=== PATIENT | female | born 1980 | race American Indian/Alaskan Native ===

== ENCOUNTER 2018-11-02 15:27 | Emergency (ER) | payer SELFPAY ==
[2018-11-02 16:39] LABS: Bilirubin,Urine NEG (Negative); Blood,Urine NEG (Negative); Color,Urine Amber (Yellow); Mucus,Urine 3+ /HPF; Protein,Urine <15 mg/dL mg/dL (Negative)
[2018-11-02 16:43] VITALS: BP 125/71
--- NOTE | 2018-11-02 16:43 | Event Note ---
ED Screening Note Date of service: 11/02/18 Time: 16:40 ED Screening Note: 38 y/o female comes in for vaginal bleeding that has become heavy. Report having fibroids. Mild dysuria. This initial assessment/diagnostic orders/clinical plan/treatment(s) is/are subject to change based on patients health status, clinical progression and re- assessment by fellow clinical providers in the ED. Further treatment and workup at subsequent clinical providers discretion. Patient/guardian urged not to elope from the ED as their condition may be serious if not clinically assessed and managed. Initial orders include:
[2018-11-02 16:47] LABS: HCG Qualitative,Urine Negative (Negative)
[2018-11-02] MEDS ORDERED: LEVAQUIN PO ONE (19:35)
--- NOTE | 2018-11-02 20:00 | Emergency Department Report ---
ED Female HPI - General Chief complaint: Urogenital-Female Stated complaint: BLOOD IN URINE Time Seen by Provider: 11/02/18 16:40 Source: patient Mode of arrival: Ambulatory Limitations: No Limitations - History of Present Illness MD Complaint: dysuria -: Gradual, days(s) (10) Location: suprapubic Radiation: non-radiating Severity: mild Quality: sharp, burning Improves with: none Worsens with: urination Are you Now?: No Associated Symptoms: hematuria (sees blood when she wipes). denies: vaginal discharge, vaginal bleeding, abdominal pain, loss of appetite, dysuria - Related Data Home Medications Medication Instructions Recorded Confirmed Last Taken Phentermine/Topiramate [Qsymia 1 each PO QDAY 05/08/13 05/08/13 05/08/13 3.75 mg-23 mg] 1 Previous Rx's Medication Instructions Recorded Last Taken Type Ibuprofen [Motrin] 800 mg PO TID PRN #15 tablet 05/09/13 Unknown Rx Ciprofloxacin HCl [Ciprofloxacin 500 mg PO Q12HR #28 tab 11/02/18 Unknown Rx TAB] Phenazopyridine [Pyridium] 200 mg PO TID #9 tab 11/02/18 Unknown Rx Allergies Allergy/AdvReac Type Severity Reaction Status Date / Time No Known Allergies Allergy Unverified 05/08/13 20:33 ED Review of Systems ROS: Stated complaint: BLOOD IN URINE Other details as noted in HPI Comment: All other systems reviewed and negative ED Past Medical Hx - Past Medical History Previous Medical History?: No - Surgical History Past Surgical History?: Yes Additional Surgical History: Ectopic - Social History Smoking Status: Never Smoker Substance Use Type: Alcohol, Marijuana - Medications Home Medications: Home Medications Medication Instructions Recorded Confirmed Last Taken Type Phentermine/Topiramate [Qsymia 1 each PO QDAY 05/08/13 05/08/13 05/08/13 History 3.75 mg-23 mg] 1 Ibuprofen [Motrin] 800 mg PO TID PRN #15 tablet 05/09/13 Unknown Rx Ciprofloxacin HCl [Ciprofloxacin 500 mg PO Q12HR #28 tab 11/02/18 Unknown Rx TAB] Phenazopyridine [Pyridium] 200 mg PO TID #9 tab 11/02/18 Unknown Rx ED Physical Exam - General Limitations: No Limitations General appearance: alert, in no apparent distress - Head Head exam: Present: atraumatic, normocephalic, normal inspection - Eye Eye exam: Present: normal appearance, PERRL, EOMI. Absent: scleral icterus, conjunctival injection, periorbital swelling, periorbital tenderness Pupils: Present: normal accommodation - ENT ENT exam: Present: mucous membranes moist - Neck Neck exam: Present: normal inspection, full ROM. Absent: tenderness, lymphadenopathy - Respiratory Respiratory exam: Present: normal lung sounds bilaterally. Absent: respiratory distress - Cardiovascular Cardiovascular Exam: Present: regular rate, normal rhythm. Absent: systolic murmur, diastolic murmur, rubs, gallop - GI/Abdominal GI/Abdominal exam: Present: soft, tenderness, normal bowel sounds. Absent: guarding, rebound, rigid, hyperactive bowel sounds, hypoactive bowel sounds, organomegaly, mass, bruit, pulsatile mass - Extremities Exam Extremities exam: Present: normal inspection, full ROM, normal capillary refill - Back Exam Back exam: Present: normal inspection, full ROM. Absent: CVA tenderness (R), CVA tenderness (L) - Neurological Exam Neurological exam: Present: alert, oriented X3, CN II-XII intact, normal gait - Psychiatric Psychiatric exam: Present: normal affect, normal mood - Skin Skin exam: Present: warm, dry, intact, normal color. Absent: rash ED Course Vital Signs 11/02/18 16:40 Temperature 97.7 F Pulse Rate 93 H Respiratory 18 Rate Blood Pressure 125/71 O2 Sat by Pulse 98 Oximetry ED Medical Decision Making - Medical Decision Making 38-year-old female reports multiple department complaining of hematuria and dysuria. Laboratory data thus support urinary tract infection. However, does not support any hematuria. The patient asked a lot of questions about an STD and later added that she wanted to screen for chlamydia and gonorrhea, although she is not having any vaginal discharge or vaginal bleeding. She reports safe sex practices. She was seen 2 weeks ago for suspicion of an ectopic . However was found to have a negative are negative test, which is also the case to today also. Ultrasound showed a four-day fibroids, showing no other abnormalities. I encouraged her to follow with [facility] for definitive management of her list of concerns. Critical care attestation.: If time is entered above; I have spent that time in minutes in the direct care of this critically ill patient, excluding procedure time. ED Disposition Clinical Impression: UTI (urinary tract infection) Disposition: TO HOME OR SELFCARE Is pt being admited?: No Does the pt Need Aspirin: No Condition: Stable Instructions: Phenazopyridine (By mouth), Urinary Tract Infection in Women (ED), Dysuria (ED) Referrals: ALINA SALDANA MD [Primary Care Provider] - 3-5 Days
== END 2018-11-02 20:46 | disposition home or self-care (01) ==
LOC: ED 15:27
DX: N39.0 Urinary tract infection, site not specified (principal)
CPT/HCPCS: 81001; 81025; 87086